=== PATIENT | female | born 1935 | race African-American/Black ===

== ENCOUNTER → 2021-11-05 | Emergency (ER) | payer OTHER ==
[~2021-11-05] VITALS: Ht 162.6 cm; Wt 65.8 kg
[2021-11-05 15:02] VITALS: BP 202/114
== END | disposition left against medical advice (07) ==
LOC: ER 14:33 → EDBD 14:33
DX: R53.1 Weakness (principal); R42 Dizziness and giddiness; Z53.21 Procedure and treatment not carried out due to patient leaving prior to being seen by health care provider
CPT/HCPCS: 93005